=== PATIENT | female | born 1970 | race Caucasian/White ===

== ENCOUNTER 2017-09-30 08:51 | Day surgery (SDC) | payer OTHER ==
[~2017-09-30 08:51] MED LIST: AMOX1TAB12 PO; CYMBALTA20 MG; CYMBALTA30 MG PO; PERCOCET 5/3251 TAB PO; TEGRETOL XR100 MG PO; TRAMADOL HCL25 GM MC
== END 2017-09-30 20:00 | disposition home or self-care (01) ==
LOC: CIR.AMB 08:51
DX: N84.0 Polyp of corpus uteri (principal)

== ENCOUNTER 2020-03-29 12:52 | Emergency (ER) | payer OTHER ==
[~2020-03-29] VITALS: Ht 167.6 cm; Wt 92.5 kg
[2020-03-29] MEDS ORDERED: FAMOTIDINE20 MG PO (13:26)
[2020-03-29] MEDS ORDERED: LEVOFLOXACIN750 MG PO (13:26)
[2020-03-29] MEDS ORDERED: ARIPIPRAZOLE2 MG PO (13:27)
[2020-03-29] MEDS ORDERED: ESCITALOPRAM OX20 MG PO (13:27)
== END 2020-03-29 19:30 | disposition home or self-care (01) ==
LOC: ER 12:52
DX: R10.2 Pelvic and perineal pain (principal); R10.32 Left lower quadrant pain; N83.292 Other ovarian cyst, left side

== ENCOUNTER 2020-04-04 09:15 | Inpatient (IN) | payer OTHER ==
[~2020-04-04] VITALS: Ht 167.6 cm; Wt 90.7 kg
[~2020-04-04 09:15] MED LIST changes: +ARIPIPRAZOLE2 MG PO; +ESCITALOPRAM OX20 MG PO; +FAMOTIDINE20 MG PO; +LEVOFLOXACIN750 MG PO
[2020-04-04] MEDS ORDERED: LEXAPRO20 MG PO (13:16)
[2020-04-04] MEDS ORDERED: ABILIFY2 MG PO (13:16)
[2020-04-11] MEDS ORDERED: OMEPRAZOLE40 MG (11:42)
[2020-04-11] MEDS ORDERED: PROAIR HFA8.5 GM (11:42)
[2020-04-14] MEDS ORDERED: PERCOCET 5-3251 EACH PO (09:39)
== END 2020-04-14 10:44 | disposition home or self-care (01) | DRG 743 ==
LOC: OB/GYN 04-11 07:00 → O/R 04-11 08:13 → OB/GYN 04-11 09:15 → SURG-SUITE 04-11 17:45
PROVIDERS: ADMIT Specialist; ATTEND Specialist
PROC: 0UT10ZZ Resection of Left Ovary, Open Approach (ICD-10-PCS; 2020-04-11)
PROC: 0UT60ZZ Resection of Left Fallopian Tube, Open Approach (ICD-10-PCS; 2020-04-11)
PROC: 0UT90ZZ Resection of Uterus, Open Approach (ICD-10-PCS; principal; 2020-04-11 07:00)
DX: D25.2 Subserosal leiomyoma of uterus (principal); N83.292 Other ovarian cyst, left side; N70.91 Salpingitis, unspecified; N83.8 Other noninflammatory disorders of ovary, fallopian tube and broad ligament; N92.1 Excessive and frequent menstruation with irregular cycle

== ENCOUNTER 2025-01-01 13:14 | Emergency (ER) | payer OTHER ==
[~2025-01-01] VITALS: Ht 167.6 cm; Wt 81.2 kg
[~2025-01-01 13:14] MED LIST changes: +ABILIFY2 MG PO; +LEXAPRO20 MG PO; +OMEPRAZOLE40 MG; +PERCOCET 5-3251 EACH PO; +PROAIR HFA8.5 GM
[2025-01-01] MEDS ORDERED: FENOFIBRATE145 MG PO (14:31)
[2025-01-01] MEDS ORDERED: CETIRIZINE HCL10 MG PO (14:32)
[2025-01-01] MEDS ORDERED: BUPROPION XL300 MG PO (14:32)
[2025-01-01] MEDS ORDERED: ESTRADIOL1 EAC1 TD (14:32)
[2025-01-01] MEDS ORDERED: IRBESARTAN75 MG PO (14:32)
[2025-01-01] MEDS ORDERED: PROGESTERONE100 M1 PO (14:33)
[2025-01-01] MEDS ORDERED: ESTRADIOL10 MCG VG (14:33)
[2025-01-01] MEDS ORDERED: DEXAMETHASONE SODIUM PHOSPHATE 4 MG/ML VIAL IM STA (14:49)
[2025-01-01] MEDS ORDERED: MECLIZINE HCL 25 MG TABLET PO STA (14:50)
[2025-01-01] MEDS ORDERED: MECLIZINE HCL 25 MG TABLET PO ONE (15:57)
[2025-01-01] MEDS ORDERED: DEXAMETHASONE SODIUM PHOSPHATE 4 MG/ML VIAL ONE (15:58)
[2025-01-01 16:13] LABS: BASO % 0.7 % (0.1-1.2); EOS # 0.38 (0.04-0.54); EOS % 5.2 % (0.7-7.0); LYMPH # 2.03 (1.18-3.74); LYMPH % 27.8 % (19.3-53.1); MEAN PLATELET VOLUME 8.40 fl (9.4-12.4); MONO # 0.46 (0.24-0.82); MONO % 6.3 % (4.7-12.5); NEUT # 4.36 (1.56-6.13); NEUT % 59.9 % (34.0-71.1); RED CELL DISTRIBUTION WIDTH 13.1 % (11.6-14.4)
[2025-01-01 16:37] LABS: BUN CREA RATIO 17.0 (7.0-25.0); CREATININE SERUM 0.64 mg/dL (0.55-1.02); GFR 97.07; GLUCOSE FASTING 107.0 mg/dL (65-100); OSMOLALITY SERUM 281.0 MOSM/KG (275-295)
== END 2025-01-01 19:23 | disposition home or self-care (01) ==
LOC: ER 13:14
PROVIDERS: General Practice
DX: H81.10 Benign paroxysmal vertigo, unspecified ear (principal); I10 Essential (primary) hypertension; Z88.6 Allergy status to analgesic agent